=== PATIENT | male | born 1975 | race Caucasian/White ===

== ENCOUNTER 2016-11-14 17:59 | Emergency (ER) | payer OTHER ==
[~2016-11-14] VITALS: Ht 185.4 cm; Wt 110.0 kg
[2016-11-14 18:01] VITALS: BP 150/86; PULSE 66; RESP 20; O2SAT 97
--- NOTE | 2016-11-14 18:32 | DRSVH ---
PROCEDURE: X-RAY CHEST ONE VIEW, PORTABLE ([id number]) INDICATIONS: cp TECHNIQUE: One view of the chest was acquired. COMPARISON: None. FINDINGS: Surgical changes and devices: None. Lungs and pleura: No pleural effusions or pneumothorax. Lungs are unchanged from the comparison yaneli dy in 2013. There is slight stranding behind the left heart but that was previously present. No def inite focal pneumonia or underlying pleural effusion found.. Mediastinum: Mediastinal contours appear normal. Heart size is normal. Bones and chest wall: No suspicious bony lesions. Overlying soft tissues appear unremarkable. IMPRESSION: Source of current symptoms is not seen. The study is unchanged from 05/07/14. Dictated by: Anuel Smith M.D. on 11/14/2016 at 18:30 Approved by: Anuel Smith M.D. on 11/14/2016 at 18:31
--- NOTE | 2016-11-14 18:58 | ED.REPORT ---
HPI-Chest Pain 40 and Over Date of Service Nov 14, 2016 ED Provider: Ricki Pagan DO Patient is a 41 year old male w/ a hx of anxiety who presents to the ED due to SOB onset [employer]. Pt initially called EMS 7 hrs ago with onset of chest "tightness, " but by the time medics arrived the feeling had abated and he decided he didn' t want to go to the ED. He experienced symptoms again immediately [employer] and decided to see a doctor. Pt specifically denies chest "pain" and describes the symptom as chest "pressure." He had a similar episode 2 years ago at which time he reported to the ED and got a full work up, EKG, and chest x-ray which did not reveal any acute findings and symptoms were attributed to panic attack. Pt admits he has a lot of stressful family events lately. He denies diaphoresis and nausea. No hx of high blood pressure, heart issues or family hx of heart disease. Nursing Notes Stated Complaint: SHORT OF BREATH,CHEST PRESSURE PAIN Chief Complaint: Chest Pain Nursing Notes Reviewed: Yes Allergies: Coded Allergies: No Known Allergies (Unverified , 11/14/16) Scheduled PRN Lorazepam (Ativan) 0.5 Mg Tablet 0.5 MG PO DAILY PRN PRN For Anxiety General Time Seen by MD: 18:57 Chief Complaint Shortness of breath Hx Obtained From: Patient Arrived By: Walk-in Sudden in Onset?: Yes Onset Occurred: 5 - 8 hours ago Symptom Duration: Since onset Quality: Pressure Radiation: : Does not radiate Severity: Current: No pain currently Recent Healthcare: No recent doctor visit, No recent hospitalization Similar Sx Previous: Yes Past Medical History Past Medical History panic attack Past Surgical History denies Social History Other Social History: , Local resident Ambulatory Status Independent Review of Systems Respiratory: Reports: Shortness of breath Cardiovascular: Reports: Chest pain ("tightness/pressure") GI: Denies: Nausea Skin: Denies Diaphoresis Complete sys rev & neg: except as marked. Physical Exam Initial Vital Signs Initial VS: Reviewed Head / Eyes: Atraumatic, Normocephalic, PERRL ENT: Mucous membranes moist, Conjunctiva normal, No scleral icterus Neck: Supple, Non-tender, Full range of motion Extremities: Vascular intact, Neuro intact, No swelling, No tenderness Skin: Warm, Dry, No cyanosis Neurologic: Alert, Oriented, Nonfocal Psychiatric: Mood/affect normal, Behavior normal, Normal thought content General/Constitutional: Awake, Alert, No acute distress, Well appearing, Well developed, Well hydrated, Cooperative, Not toxic appearing Respiratory / Chest: Atraumatic, Breath sounds NL, Breath sounds = bilat, No respiratory distress, No rales, No rhonchi, No wheezing Cardiovascular: Heart rate NL, Regular rhythm, Heart sounds NL, No gallop, No murmurs, No rubs Abdomen: Atraumatic, Soft, Non-tender, No guarding, No rebound, BS normoactive Interpretation & Diagnostics Lab Results Interpretation Test 11/14/16 19:30 White Blood Count 6.7th/mm3 (3.8-10.1) Red Blood Count 4.53mil/mm3 (4.40-5.80) Hemoglobin 15.4g/dL (13.8-17.2) Hematocrit 42.0% (41.0-50.0) Mean Corpuscular Volume 92.7fL (81-100) Mean Corpuscular Hemoglobin 34.0pg (27.0-35.0) Mean Corpuscular Hemoglobin Concent 36.7% (32.0-37.0) Red Cell Distribution Width 11.8% (12.3-15.4) Platelet Count 199bil/L (150-400) Neutrophils (%) (Auto) 69.2% (40-74) Lymphocytes (%) (Auto) 21.2% (14-46) Monocytes (%) (Auto) 8.0% (4-12) Eosinophils (%) (Auto) 1.1% (0-5) Basophils (%) (Auto) 0.3% (0-3) Sodium Level 136mEq/L (134-144) Potassium Level 4.1mEq/L (3.5-5.2) Chloride Level 96mEq/L (97-108) Carbon Dioxide Level 27mmol/L (18-29) Blood Urea Nitrogen 15mg/dL (6-24) Creatinine 1.04mg/dL (0.76-1.27) Estimat Glomerular Filtration Rate 84mL/min (>59) Glucose Level 105mg/dL (60-99) Calcium Level 9.5mg/dL (8.5-10.1) Magnesium Level 1.9mg/dL (1.6-2.6) Total Bilirubin 0.6mg/dL (0.0-1.2) Aspartate Amino Transf (AST/SGOT) 25U/L (0-50) Alanine Aminotransferase (ALT/SGPT) 37U/L (0-44) Alkaline Phosphatase 81U/L (25-150) Troponin T < 0.010ug/L (0.0-0.011) Total Protein 7.4g/dL (6.4-8.4) Albumin 4.6g/dL (3.4-5.0) Hold Paulino Top Tube Received (Received) ECG Interpretation Time: 19:15 Interpreted by: ED physician Normal ECG Interpretation: Normal sinus rhythm (56) X-Ray Chest Interpretation Chest Xray Interpretation: IMPRESSION: Source of current symptoms is not seen. The study is unchanged from 05/07/14. Dictated by: Anuel Smith M.D. on 11/14/2016 at 18:30 Approved by: Anuel Smith M.D. on 11/14/2016 at 18:31 View: Portable Interpretation / Wet Read by: Interpret - Radiologist Re-Eval/Medical Decision Med Decision/Clinical Course 41-year-old male with a history of anxiety going through some acute stress due to an upcoming childbirth of his first child presents with chest tightness and shortness of breath. ACS was ruled out here. Symptoms improved with Ativan. He has had a previous episode just like today. Patient agreeable to follow-up to discuss anxiety with PCP. I notified him I be happy to see him in the clinic if desired Time of Eval: 20:26 Patient Status: Condition improved Re-Evaluation/Progress Note: Pt rechecked. Informed of normal EKG and lab results. patient understands and agrees with plan. F/U and RTER warnings given. Counseled Regarding: Diagnosis, Lab results, Need for follow-up, When/why to return to ED Discharge & Departure Primary Impression: Anxiety Additional Impressions: Chest tightness Shortness of breath Ruled Out: Acute coronary syndrome Disposition: Home Discharge Condition All VS Reviewed: Yes Condition: Stable Patient Instructions: Generalized Anxiety Disorder (ED), Chest Pain (ED) Additional Instructions: Thank you for coming to the Emergency Department today. There are no abnormal findings in your physical exam, imaging, labs, or EKG. There are no signs of asthma, pneumonia, heart issues, or disease. There are many different ways to treat anxiety. We're sending you home with a prescription for anxiety to take as needed. Follow up with a primary care physician for further questions. There is a primary care clinic in [facility] you can contact at the phone number below. Please feel free to go to my clinic in [place] if you are looking for a primary care physician. Return to the Emergency Department if you experience any new or worsening symptoms. Congrats and good luck with your first child! Referrals: NOPCP (PCP) Melani Attestation Portion of this note were transcribed by Lesa Guzmán. I, Dr. Pagan, personally performed the history, physical exam, and medical decision-making: I reviewed and confirmed the accuracy for the information in the transcribed note. Signed by: melani Bella, 11/14/16 2100 Ricki Pagan DO Nov 14, 2016 18:57 LESA GUZMÁN Nov 14, 2016 19:30 Ricki Pagan DO Nov 14, 2016 18:57 LESA GUZMÁN Nov 14, 2016 19:30
[2016-11-14] MEDS: LORazepam 0.5 mg Tablet PO ONE ×2 (19:55→20:43)
[2016-11-14 19:59] LABS: BASOPHILS % (AUTO) 0.3 % (0-3); EOSINOPHILS % (AUTO) 1.1 % (0-5); Mean Corpuscular Volume 92.7 fL (81-100); NEUTROPHILS % (AUTO) 69.2 % (40-74); Platelet Count 199 bil/L (150-400)
[2016-11-14 20:15] LABS: Magnesium 1.9 mg/dL (1.6-2.6)
[2016-11-14 20:18] LABS: TROPONIN T < 0.010 ug/L (0.0-0.011)
[2016-11-14] MEDS ORDERED: LORA-302 PO (21:00)
[2016-11-14 21:25] VITALS: BP 128/77; RESP 20; O2SAT 96
== END 2016-11-14 21:28 | disposition home or self-care (01) ==
LOC: SED 17:59
DX: F41.9 Anxiety disorder, unspecified (principal); R07.89 Other chest pain; R06.02 Shortness of breath